=== PATIENT | female | born 2000 | race Caucasian/White ===

== ENCOUNTER → 2024-07-27 | Outpatient (CLI) | payer BC, SELFPAY ==
--- NOTE | 2024-07-27 09:59 | RAD_ITS ---
PROCEDURE: PELVIS 1 OR 2 VIEWS 07/27/2024 REASON FOR EXAM: INFLAMMATORY POLYARTHROPATHY TECHNIQUE: 1 view(s) of the pelvis. FINDINGS: Bilateral symmetric appearing SI joints and pubic symphysis appear within limits. The joint spaces appear within limits. No sclerotic change. No fracture or dislocation identified. Visualized lower lumbar spine appears within limits. RAD/Pelvis 1 or 2 Views IMPRESSION: Study appears within limits as above. Reading Location: [id number]
[2024-07-27 12:22] LABS: Erythrocyte Sedimentation Rate 8 mm/hr (0-30)
[2024-07-27 12:23] LABS: Absolute Lymphocyte Count 1.78 X10^3/uL (0.83-4.51); Absolute Neutrophil Count 5.2 X10^3/uL (2.0-7.7); Basophil# 0.03 X10^3/uL; Basophil% 0.4 % (0-1); Eosinophil# 0.09 X10^3/uL; Eosinophils% 1.2 % (0-5); Hematocrit 41.2 % (37-47); Hemoglobin 13.9 g/dL (12.0-15.0); Lymphocyte # 1.78 X10^3/ul (0.83-4.51); Lymphocyte % 23.7 % (19-41); Mean Corp Hgb Conc 33.7 g/dL (32-36); Mean Platelet Vol. 12.3 fl (6.2-12.0); Monocyte# 0.34 X10^3/uL; Monocyte% 4.5 % (0-10); NRBC Flagged by Analyzer 0 % (0-5); Neutrophil # 5.24 X10^3/uL (2.7-7.7); Neutrophil % 69.7 % (47-70); Platelet Count 252 K/mm3 (150-450); RBC Distribution Width CV 12.7 % (11.6-14.6); RBC Distribution Width SD 39.3 fl (35.1-43.9); Red Blood Count 4.79 M/mm3 (4.2-5.4); White Blood Count 7.5 K/mm3 (4.4-11.0)
[2024-07-27 13:05] LABS: Hepatitis B Surface Antibody REAC
[2024-07-27 13:29] LABS: ALB/GLOB Ratio 1.4 RATIO (0.9-2.4); AST(SGOT) 19 U/L (<=31); Alanine Aminotransfer ALT/SGPT 17 U/L (<=34); Albumin, Serum 4.3 g/dL (3.5-5.0); Alkaline Phosphatase 71 U/L (35-104); Anion Gap 13 (5-15); BUN 7 mg/dL (4-19); Calcium,Total 9.4 mg/dL (7.6-11.0); Chloride 103 mmol/L (98-108); Creatinine, Serum 0.66 mg/dL (0.70-1.20); EST Glomerular Filtration Rate 125 (>60); Globulin 3.1 g/dL (2.2-4.2); Glucose 82 mg/dL (70-99); Hepatitis B Surface Antigen Nonreactive (Nonreactive); Hepatitis C Antibody Nonreactive (Nonreactive); Potassium 3.9 mmol/L (3.3-5.1); Protein, Total 7.4 g/dL (5.9-8.4); Sodium Level 137 mmol/L (133-145); Total Bilirubin 0.61 mg/dL (0.00-1.30)
[2024-07-27 13:30] LABS: CRP 9.76 mg/L (0.0-3.0); Rheumatoid Factor < 10.0 IU/mL (<15)
[2024-07-29 11:08] LABS: ANTINUCLEAR ANTIBODIES DIRECT Negative (Negative)
[2024-08-02 17:08] LABS: CCP IgG Antibodies 8 units (0-19); HLA B27 Negative (.); QNTFERON TB Mitogen Value > 10.00 IU/mL (.); QNTFERON TB Nil Value 0.05 IU/mL (.); QNTFERON TB1+ Ag Value 0.07 IU/mL (.); QNTFERON TB2+ Ag Value 0.09 IU/mL (.); QNTIFERON TB Positive Criteria Negative (Negative)
== END | disposition home or self-care (01) ==
LOC: MTLAB 09:57
PROVIDERS: PCP Internal Medicine; Referring Provider Internal Medicine Rheumatology; Visit Provider Internal Medicine Rheumatology
DX: M06.4 Inflammatory polyarthropathy (principal); M79.7 Fibromyalgia; Z79.899 Other long term (current) drug therapy
CPT/HCPCS: 36415; 72170; 80053; 81374; 85025; 85652; 86038; 86140; 86200; 86431; 86480; 86706; 86803; 87340